=== PATIENT | female | born 1955 | race Caucasian/White ===

== ENCOUNTER 2021-01-26 08:13 | Outpatient (CLI) | payer MEDICARE, SELFPAY ==
--- NOTE | 2021-01-26 08:24 | ECG_ITS ---
[facility] Test Date: 2021-01-26 Pat Name: Dunia Donald Department: Room: Gender: Female [employer] Sander: : 1955 Requested By: Mani Villegas Order Number: [id number] Liz MD: SHARI CHURCHILL Interpretive Statements NAME OF STUDY: EXERCISE SESTAMIBI STRESS TEST INDICATION: Atypical Chest Pain EXERCISE DATA: The patient was exercised by Marco protocol. Baseline heart rate was 64 beats per minute. Baseline blood pressure was 126/98 millimeters of mercury. Target heart rate was 153 beats per minute. Maximum heart rate achieved was 138, which was 90 % of the target heart rate. Maximum blood pressure was 161/105 millimeters of mercury. Total exercise time was 6 minutes. Maximum METs achieved was 7.0, maximum VO2 was 24.5. The reason for ending the test was maximum effort achieved. The patient complained of during the stress test, which then resolved at the end of the test. ELECTROCARDIOGRAM: BASELINE: Showed sinus rhythm, normal axis, no significant ST-T changes at the baseline noted. EXERCISE: At the peak exercise level, no significant ST-T changes suggestive of ischemia noted. RECOVERY: During the recovery period, heart rate dropped appropriately. No significant ST-T changes in the recovery suggestive of ischemia noted. CONCLUSION: 1. Exercise capacity fair. 2. Heart rate response was appropriate. 3. Blood pressure response was appropriate. 4. Symptoms not suggestive of ischemia. 5. Electrocardiogram portion of the stress test was not suggestive of ischemia. 6. Nuclear scan will be documented separately. Electronically Signed On 02-21-2021 19:57:50 CDT by SHARI CHURCHILL [email or web address]
--- NOTE | 2021-01-26 08:24 | NMCV_ITS ---
NM eh perf SPECT r/s* [id number] Dunia Donald Age: 65 Gender: F : 1955 Exam Date: 01/26/2021 08:24 Ordering Phys: Mani Alva MD Technologist: YANNICK Bell Exam [facility]: [facility] Indications: ATYPICAL CHEST PAIN STRESS TEST Please see separate stress test report in [facility] for full findings IMAGE PROTOCOL Rest/Stress 1 Exercise Day Radiopharmaceutical Dose (mCi) Administration Site Administered by Rest: Tc-99m 10.7 IV YANNICK Markham Sestamibi Stress:Tc-99m 32.2 IV YANNICK Markham Sestamibi Rest: 26-Jan-2021 60 Discovery 630 Stress: 26-Jan-2021 15 Discovery 630 Radiopharmaceutical was injected at 87 % maximum heart rate. Images obtained in supine and prone position. SPECT RESULTS Technical Quality: Excellent Raw Data Analysis: Normal Image Corrections: No attenuation or motion correction applied Summed Stress Score: 3 Summed Rest Score: 3 Summed Difference Score: 1 PERFUSION FINDINGS Small area of perfusion defect noted in the distal anterior wall on the rest images which improved over stress images suggestive of artifact FUNCTIONAL RESULTS (calculated via Gated SPECT) Stress Image LV EF (%): 76 Stress EDV (mL):63 TID: 1 Stress ESV (mL):15 Rest Image LV EF (%): 76 FUNCTIONAL FINDINGS: There is normal left ventricular systolic function. IMPRESSIONS Myocardial perfusion imaging is normal. EKG segment will be documented separately. Ac Araujo MD (Electronically Signed) Final Date: 27 January 2021 20:45 S
[2021-01-26 08:37] VITALS: BMI 22.0
[2021-01-26 10:15] VITALS: BP 122/92; PULSE 86
== END 2021-01-26 08:14 | disposition home or self-care (01) ==
PROVIDERS: PCP Family Medicine; Visit Provider Family Medicine
DX: R07.89 Other chest pain (principal); E55.9 Vitamin D deficiency, unspecified; E03.9 Hypothyroidism, unspecified
CPT/HCPCS: 78452; 93017; A9500

== ENCOUNTER 2021-02-22 09:38 | Outpatient (CLI) | payer MEDICARE, SELFPAY ==
--- NOTE | 2021-02-22 09:43 | MM_ITS ---
WS: [id number] BILATERAL SCREENING DIGITAL MAMMOGRAM WITH CAD HISTORY: SCREENING COMPARISON: 02/29/2016 Bilateral CC and MLO views submitted. Computer aided detection analyzed. Breast composition: There are scattered areas of fibroglandular density. No suspicious masses, microc alcifications or architectural distortion. Benign lymph nodes upper outer RIGHT quadrant. MM/[place] [id number] IMPRESSION: BI-RADS: 2-Benign FOLLOW UP: 1 Year Follow-up
== END 2021-02-22 09:39 | disposition home or self-care (01) ==
PROVIDERS: PCP Family Medicine; Visit Provider Family Medicine
DX: Z12.31 Encounter for screening mammogram for malignant neoplasm of breast (principal)
CPT/HCPCS: 77067

== ENCOUNTER → 2023-02-19 08:18 | Outpatient (BNVA) | payer MEDICARE, SELFPAY | PROVIDERS: PCP Family Medicine; Visit Provider Family Medicine | DX: Z00.00 Encounter for general adult medical examination without abnormal findings (principal); E03.9 Hypothyroidism, unspecified; E55.9 Vitamin D deficiency, unspecified | CPT/HCPCS: 80053; 80061; 82306; 84443 ==

== ENCOUNTER → 2023-03-12 13:37 | Outpatient (BNVA) | payer MEDICARE, SELFPAY | PROVIDERS: PCP Family Medicine; Visit Provider Family Medicine | DX: L98.9 Disorder of the skin and subcutaneous tissue, unspecified (principal) | CPT/HCPCS: 88304 ==

== ENCOUNTER 2024-08-04 11:28 | Outpatient (CLI) | payer MEDICARE, SELFPAY ==
--- NOTE | 2024-08-04 11:30 | XRR_ITS ---
PROCEDURE INFORMATION: Exam: XR Chest Exam date and time: 08/04/2024 11:55 AM Age: 69 years old Clinical indication: Dyspnea; Prior surgery; Surgery date: 6+ months; Surgery type: Gb; Patient HX: Depleted energy, increased weakness x 2 wks TECHNIQUE: Imaging protocol: Radiologic exam of the chest. Views: 2 views. COMPARISON: No relevant prior studies available. FINDINGS: Lungs: Unremarkable. No consolidation. Pleural spaces: Unremarkable. No pleural effusion. No pneumothorax. Heart/Mediastinum: Unremarkable. No cardiomegaly. Vasculature: Aortic atherosclerotic calcification. Bones/joints: Mild degenerative changes along the spine. XR/XR chest 2V* [id number] IMPRESSION: No acute findings.
== END 2024-08-04 11:29 | disposition home or self-care (01) ==
LOC: RAD 11:29
PROVIDERS: PCP Family Medicine; Visit Provider Family Medicine
DX: R06.00 Dyspnea, unspecified (principal); R53.83 Other fatigue; E11.9 Type 2 diabetes mellitus without complications
CPT/HCPCS: 71046; 80053; 83880; 84443; 85025; 86140

== ENCOUNTER 2025-07-23 10:55 | Emergency (ER) | payer MEDICARE, SELFPAY ==
--- OUTSIDE RECORDS SUMMARY | 2025-07-23 11:09 | XMS_ITS | Clinical Summary ---
Author Organization [facility] Address [address] [place] [address] Phone Care Team Providers Care Community Midwife Name Role Phone Unavailable Primary Care Provider Unavailabl e Allergies No known active allergies Medications No known medications Active Problems Problem Noted Date Diagnosed Date CTS (carpal tunnel syndrome) 09/21/2013 S/P carpal tunnel release bilateral 09/21/2013 Wrist pain 09/21/2013 Social History Tobacco Use Types Packs/Day Years Used Date Smoking Tobacco: Never Assessed Comments Unknown Sex and Gender Information Value Date Recorded Sex Assigned at Not on file Legal Sex Female 3:44 PM TECHNICAL SME Gender Identity Not on file Sexual Orientation Not on file Last Filed Vital Signs Vital Sign Reading Time Taken Comments Blood Pressure 138/90 09/21/2013 10:48 AM TECHNICAL SME Pulse 70 09/21/2013 10:48 AM TECHNICAL SME Temperature - - Respiratory Rate - - Oxygen Saturation - - Inhaled Oxygen Concentration - - Weight 68 kg (150 lb) 09/21/2013 10:48 AM TECHNICAL SME Height 175.3 cm (5' 9 ) 09/21/2013 10:48 AM TECHNICAL SME Body Mass Index 22.15 09/21/2013 10:48 AM TECHNICAL SME Plan of Treatment Health Maintenance Due Date Last Done Comments DTAP/TDAP/TD VACCINES (1 - Tdap) 1972 BREAST CANCER SCREENING 1993 COLORECTAL SCREENING 1998 Colorectal Cancer Screening 1998 FIT-DNA Q 3 years 1998 FIT/FOBT Q 1 year 1998 Flex Sig/CT Colonography Q 5 years 1998 PNEUMOCOCCAL VACCINE 50+ YEARS (1 of 1 - PCV) 06/09/20 03 ZOSTER VACCINE (1 of 2) 2003 OSTEOPOROSIS SCREENING 2018 INFLUENZA VACCINE (#1) 2025 RSV VACCINE (60+ or ) (1 - 1-dose 75+ series) 2028 Insurance [facility] [employer] [id number] [place] [place] [address]
[2025-07-23 11:17] VITALS: BP 108/74; PULSE 72; RESP 18; TEMP 36.7; O2SAT 98
--- NOTE | 2025-07-23 11:37 | ED_ITS ---
HPI - Extremity Injury (Lower) General: Chief Complaint: Extremity Injury, Lower Stated Complaint: right foot pain Time Seen by Provider: 07/23/25 11:37 Source: patient Mode of arrival: wheelchair Limitations: no limitations History of Present Illness: Patient is in a 70-year-old female presents to ED today along with her significant other for evaluation of a right foot injury that she sustained just prior to arrival after accidentally tripping over her dog. Patient is complaining of pain, edema, and bruising to the dorsum of her right foot. She states she cannot bear weight secondary to discomfort. MD complaint: foot injury Onset (ago): hour(s) Injury: Right: foot Place: home Severity: moderate Relieving factors: immobilization Exacerbating factors: weight bearing, movement and palpation Context: fall and walking Associated symptoms: Reports inability to bear weight Other symptoms: none Related Data Home Medications ?Medication ?Instructions ?Recorded ?Confirmed cholecalciferol (vitamin D3) 50 50 mcg PO BID 02/19/23 08/04/24 mcg (2,000 unit) capsule Previous Rx's ?Medication ?Instructions ?Recorded nirmatrelvir 300 mg (150 mg See Rx Instructions PO .CO MPLEX 08/04/24 x2)-ritonavir 100 mg tablet,dose #30 tabs pack (Paxlovid) famotidine 20 mg tablet See Rx Instructions .Route 0 05/17/25 .COMPLEX #180 tabs Allergies Allergy/AdvReac Type Severity Reaction Status Date / Time mobic Allergy Intermediate face goes Uncoded 02/19/23 07:34 numb Review of Systems Musc: Reports: extremity pain (R foot) and extremity swelling (R foot) Neuro: Reports: difficulty walking (secondary to R foot pain); Denies: numbness in extremities, weakness in extremities or sensory changes [facility] ED PFSH: Medical History Vitamin D deficiency Hypothyroid Social History Smoking and tobacco/nicotine status: unknown if used tobacco/nicotine Physical Exam Const: COMMON NORMALS: no acute distress, average body habitus, no limitations, healthy appearing, alert and well nourished GENERAL APPEARANCE: cooperative Extremity: COMMON NORMALS: capillary refill normal GENERAL: Yes normal exam except as noted RIGHT LOWER EXTREMITY: Yes foot & digits (TTP, edema, ecchymosis dorsal mid foot) Right foot and digits: Yes ROM (limited due to pain) and Yes neurovascular exam (normal) Neuro: COMMON NORMALS: moves all extremities, no focal motor deficits and no sensory deficits noted SENSORIUM/ORIENTATION: Yes alert Course Vital Signs: Vital signs: Vital Signs Temperature 98.1 F 07/23/25 11:17 Pulse Rate 72 07/23/25 11:17 Respiratory Rate 18 07/23/25 11:17 Blood Pressure 108/74 07/23/25 11:17 Pulse Oximetry 98 07/23/25 11:17 Oxygen Delivery Me thod Room Air 07/23/25 11:17 MDM - Extremity Injury (Lower) Medical Decision Making XR imaging of her right foot obtained showing nondisplaced fractures at the base of her 2 through 5 metatarsals. Patient will be placed in a splint. She will be given crutches. She also has a knee scooter she can use for nonweightbearing. Case management referral placed to get her set up with follow-up with podiatry. She declines a prescription for pain medication. Medical Records I reviewed the patient's medical records. Lab Data Radiology Impressions Foot X-Ray 07/23/25 11:43 IMPRESSION: Suspect occult nondisplaced fractures of the bases of the second through the fifth metacarpal. All radiology interpretation(s) finalized by discharge Discharge Plan Discharge Patient Disposition: Home Clinical Impression: Multiple closed fractures of metatarsal bone of right foot Condition: Stable Prescriptions: No Action cholecalciferol (vitamin D3) 50 mcg (2,000 unit) capsule 50 mcg PO BID Paxlovid 300 mg (150 mg x 2)-100 mg tablets,dose pack See Rx Instructions PO .COMPLEX Qty: 30 0RF Rx Instructions: take TWO 150 mg tablets of nirmatrelvir with ONE 100 mg tablet of ritonavir twice daily for 5 days PO famotidine 20 mg tablet See Rx Instructions .ROUTE .COMPLEX Qty: 180 3RF Dose Instruction: TAKE 1 TABLET TWICE DAILY Rx Instructions: TAKE 1 TABLET TWICE DAILY Discharge Orders: Discharge ED (Routine); Ordered 07/23/25 Ordered By: Analisa Camacho Referrals: Mani Alva MD [Primary Care Provider, Family Practice] Patient Instructions: Fractures - Metatarsal, Patient Portal & Carol Instructions Activity Restrictions/Additional Instructions: As we discussed, your x-ray today look like you had multiple metatarsal fractures. You need to stay in your splint and be nonweightbearing until your follow-up orthopedic appointment with podiatry. They should contact you early next week to set you up with this follow-up appointment. You may ice and elevate the extremity. You have declined a prescription for pain medication-you may treat discomfort with [id number] Tylenol and/or Ibuprofen. Print Language: Pashto Coding Level of Care Code ED Hotel Controller for Daja Monsivais
--- NOTE | 2025-07-23 11:43 | XR_ITS ---
WS: [id number] XR foot RT min 3V* [id number] REASON FOR EXAM: trauma/injury FINDINGS: Subtle but likely occult nondisplaced fractures in the proximal diaphyses of the second through the fifth metatarsal. The Lisfranc joint appears intact. Mild osteoarthritis in the PIP and DIP joints of the second through the fifth toes. Mild to moderate valgus subluxation of the first MTP joint with mild arthropathy. Minimal osteoarthritis in the midfoot. Subtalar joint intact and well preserved. XR/XR foot RT min 3V* [id number] IMPRESSION: Suspect occult nondisplaced fractures of the bases of the second through the fi fth metacarpal.
--- NOTE | 2025-07-26 07:31 | DCPLANNER ---
messaged podiatry for er f/u
== END 2025-07-23 12:20 | disposition home or self-care (01) ==
PROVIDERS: Emergency Provider Physician Assistant; PCP Family Medicine
DX: S92.324A Nondisplaced fracture of second metatarsal bone, right foot, initial encounter for closed fracture (principal); S92.334A Nondisplaced fracture of third metatarsal bone, right foot, initial encounter for closed fracture; S92.344A Nondisplaced fracture of fourth metatarsal bone, right foot, initial encounter for closed fracture; S92.354A Nondisplaced fracture of fifth metatarsal bone, right foot, initial encounter for closed fracture; W01.0XXA Fall on same level from slipping, tripping and stumbling without subsequent striking against object, initial encounter
CPT/HCPCS: 73630; 99283

== ENCOUNTER 2025-07-27 15:45 | Outpatient (CLI) | payer MEDICARE, SELFPAY | END 2025-07-27 15:46 | disposition home or self-care (01) | LOC: SPT 15:46 | PROVIDERS: PCP Family Medicine; Visit Provider Podiatrist Foot & Ankle Surgery | DX: Z46.89 Encounter for fitting and adjustment of other specified devices (principal); S93.324D Dislocation of tarsometatarsal joint of right foot, subsequent encounter; X58.XXXD Exposure to other specified factors, subsequent encounter | CPT/HCPCS: 99204; L4361 ==

== ENCOUNTER 2025-08-03 13:29 | Outpatient (CLI) | payer MEDICARE, SELFPAY ==
--- NOTE | 2025-08-03 14:00 | CT_ITS ---
WS: [id number] CT RIGHT FOOT, NONCONTRAST HISTORY: lisfranc fracture, right Technique: All CT scans at [facility] use at least one of these dose optimization techniques: automated exposure control; mA and/or kV adjustment per patient size (includes targeted exams where dose is matched to clinical indication); or iterative reconstruction. DLP: 144.09 mGy.cm COMPARISON: 07/23/2025 Bones are mildly osteopenic. Nondisplaced fracture plantar surface proximal first metatarsal. Comminuted fractures involving the proximal second and third metatarsals. There are small osseous fragments extending into the proximal intermetatarsal spaces. Nondisplaced fracture suspected involving the proximal fourth metatarsal. Prox imal fifth metatarsal is intact. There is no widening at the Lisfranc ligament. There is normally aligned between the tarsal bones and the metatarsals. Calcaneus and the talus are normal. Distal tibia and fibula are normal. Normal navicular. Normal cuboid. Suspect there are very small avulsion fractures along the distal first cuneiform. No osteochondral lesion along the talar dome. Mild hammertoe deformities. CT/CT foot RT wo con* [id number] IMPRESSION: 1. Nondisplaced fracture along the plantar surface proximal first metatarsal. 2. Comminuted fractures involving the proximal second and third metatarsals. 3. Nondisplaced fracture involving the proximal fourth metatarsal. 4. Tiny small avulsion fracture from the distal first cuneiform. 5. No widening of the Lisfranc ligament. Normal alignment between the tarsals and metatarsals.
== END 2025-08-03 13:30 | disposition home or self-care (01) ==
PROVIDERS: PCP Family Medicine; Visit Provider Podiatrist Foot & Ankle Surgery
DX: S92.314A Nondisplaced fracture of first metatarsal bone, right foot, initial encounter for closed fracture (principal); S92.321A Displaced fracture of second metatarsal bone, right foot, initial encounter for closed fracture; S92.331A Displaced fracture of third metatarsal bone, right foot, initial encounter for closed fracture; S92.344A Nondisplaced fracture of fourth metatarsal bone, right foot, initial encounter for closed fracture; X58.XXXA Exposure to other specified factors, initial encounter; M85.871 Other specified disorders of bone density and structure, right ankle and foot; R93.6 Abnormal findings on diagnostic imaging of limbs; M20.41 Other hammer toe(s) (acquired), right foot
CPT/HCPCS: 73700

== ENCOUNTER → 2025-08-10 08:08 | Outpatient (BNVA) | payer MEDICARE, SELFPAY | PROVIDERS: PCP Family Medicine; Visit Provider Podiatrist Foot & Ankle Surgery | DX: S92.301A Fracture of unspecified metatarsal bone(s), right foot, initial encounter for closed fracture (principal); X58.XXXA Exposure to other specified factors, initial encounter | CPT/HCPCS: 99214 ==

== ENCOUNTER → 2025-09-09 08:32 | Outpatient (BNVA) | payer MEDICARE, SELFPAY | PROVIDERS: PCP Family Medicine; Visit Provider Podiatrist Foot & Ankle Surgery | DX: S92.301A Fracture of unspecified metatarsal bone(s), right foot, initial encounter for closed fracture (principal); X58.XXXA Exposure to other specified factors, initial encounter | CPT/HCPCS: 73630; 99213 ==